=== PATIENT | male | born 2000 | race Caucasian/White ===

== ENCOUNTER 2021-02-01 10:30 | Emergency (ER) | payer SELFPAY ==
[2021-02-01 11:01] VITALS: BP 116/74; PULSE 58; RESP 16; TEMP 36.9; O2SAT 98
--- NOTE | 2021-02-01 11:45 | DI.CT_ITS ---
Exam(s) CT FACIAL W EXAM: CT FACIAL W CLINICAL HISTORY: right jaw pain, swelling. TECHNIQUE: Imaging Protocol: Axial computed tomography images with coronal and sagittal reformatted images were created and reviewed CONTRAST MATERIAL: Intravenous: Omnipaque 350 Contrast volume:100 ml Contrast route:IV - Oral: no COMPARISON: No exams were available for comparison FINDINGS: Facial Bones: No fracture is noted in facial bones. Sinuses and Mastoids: Small mucous retention cyst left maxillary sinus Globes, extraocular muscles, optic nerves and retrobulbar fat: Normal. Upper aerodigestive tract: Normal. Mandible and bilateral temporomandibular joints: Normal. Soft tissues: Asymmetric right parotid gland enlargement and increased enhancement consistent with p arotitis. There is some adjacent edema in the subcutaneous fat. There is no drainable fluid collect ion or abscess. There is no mass. No calcifications are seen. Visualized portions of the brain are unremarkable. The submandibular glands appear normal. IMPRESSION: Right parotitis. No evidence of abscess. RADIATION DOSE DELIVERED: 363.23mGy.cm Total DLP DATA REPOSITORY: All CT scans at this facility are submitted to the National Radiology Data Registry (NRDR) Dose Index Registry (DIR) with the [employer] ([employer]). RADIATION OPTIMIZATION: All CT scans at this facility use at least one of these dose optimization te chniques: automated exposure control; mA and/or kV adjustment per patient size (includes targeted exa ms where dose is matched to clinical indication); or iterative reconstruction.
[2021-02-01 12:50] LABS: Abs Immature Grans 0.19 10^3/uL (0.0-0.06); Absolute Basophil Count 0.09 10^3/uL (0.0-0.2); Absolute Eosinophil Count 0.27 10^3/uL (0.0-0.7); Absolute Lymphocyte Count 2.34 10^3/uL (1.2-3.4); Absolute Monocyte Count 1.04 10^3/uL (0.1-0.8); Absolute Neutrophil Count 9.36 10^3/uL (1.2-6.7); Basophils % 0.7; HCT 42.8 % (40.0-50.0); HGB 14.3 g/dL (13.5-17.5); Immature Grans % 1.4; Lymphocytes % 17.6; MCH 32.9 pg (27.0-33.0); MCHC 33.4 % (32.0-36.0); MCV 98.4 fL (80-95); MPV 12.2 fL (8.0-11.0); Monocytes % 7.8; Neutrophils % 70.5; Nucleated RBC 0 %; Platelet Count 197 10^3/uL (130-400); RBC 4.35 10^6/uL (4.36-5.78); RDW 11.8 % (11.8-14.1); RDW-SD 43.3 fL; WBC 13.28 10^3/uL (4.4-10.8)
[2021-02-01 13:28] LABS: ALT 25 U/L (16-63); AST 20 U/L (15-37); Albumin 4.1 g/dL (3.4-5.0); Alkaline Phosphatase 69 U/L (46-116); Anion Gap 5.2 mmol/L (3-11); BUN 12 mg/dL (7-18); Bilirubin, Total 1.2 mg/dL (0.2-1.0); CO2 31.8 mmol/L (21.0-32.0); CREATININE 0.9 mg/dL (0.70-1.30); Calcium 9.6 mg/dL (8.5-10.1); Chloride 101 mmol/L (98-107); Glucose 88 mg/dL (74-106); Potassium 4.4 mmol/L (3.5-5.1); Sodium 138 mmol/L (136-145); Total Protein 8.2 g/dL (6.4-8.2)
[2021-02-01] MEDS: Omnipaque 350 MG/ML 100 ML BTL IJ (13:39)
[2021-02-01] MEDS: Normal Saline - Diluent 50 ML VIAL IV (13:41)
[2021-02-01] MEDS: Normal Saline Flush 10 ML SYR IVP (13:43)
[2021-02-01] MEDS: Amoxicillin 875/Clav. 125 TAB PO (14:31)
[2021-02-01 14:33] VITALS: BP 124/76; PULSE 69; RESP 18; TEMP 36.4; O2SAT 100
--- NOTE | 2021-02-01 23:20 | ED.GENADUL_ITS ---
Discharge Plan Disposition Patient Disposition: HOME Condition: Stable Discharge Details Clinical Impression: Acute parotitis Primary Care Provider: Cecy Mi ED Provider: Roseline Pérez Home Meds and New Rx's Prescriptions: New amoxicillin-pot clavulanate [Augmentin] 875-125 mg tablet 1 tab PO BID Qty: 19 RF: 0 Discharge Instructions Instructions: Sialoadenitis (ED) Additional Instructions: Please return immediately to the emergency department if you develop any new or worsening symptoms, if your condition does not improve as expected, or if you become otherwise concerned. It is extremely important that you call soon as possible to make an appointment to be seen in follow-up for this visit by your primary care doctor. Stand Alone Forms: Work Release Referrals: Cecy Mi [Primary Care Provider] - Discharge Data Discharge Date/Time-TO BE ENTERED AT DEPARTURE: 02/01/21 14:37 Medical Decision Making Javi Grant is a 20 y/o man without reported h/o major medical problems who presented to the emergency department with acute swelling and pain of the right jaw. On exam Pt is well and non-toxic appearing. Focal edema and TTP over the right angle of the mandible and submandibular area, no overlying skin changes. Normal examination of the oropharynx. Concern for abscess, bony inflammation/infection, parotitis, other. Plan for IV placement, screening labs, CT face. Exam/hx at this time not c/w sepsis, meningitis, impending airway compromise. CT shows parotitis. Labs reviewed, WBC elevated, normal AG. Viral etiology less likely, no prior illness, unilateral. Plan to treat with abx, OTC sialogogues. I had a lengthy discussion with Patient regarding return to emergency department precautions, home care, and importance of outpatient follow-up. Pt verbalizes understanding of the plan and is amenable. Patient discharged to home with clear plan for outpatient follow-up. All questions were answered. Disposition decision was made weighing the risks and benefits of hospitalization versus outpatient treatment, the risk for further decompensation, and the patie nt's wishes. Medical Records Medical records reviewed: Yes I reviewed the patient's medical records. Imaging Data Radiologic Study: Attestation: I personally reviewed and interpreted this imaging study as follows: Radiologist's impression: EXAM: CT FACIAL W CLINICAL HISTORY: right jaw pain, swelling. TECHNIQUE: Imaging Protocol: Axial computed tomography images with coronal and sagittal reformatted images were created and reviewed CONTRAST MATERIAL: Intravenous: Omnipaque 350 Contrast volume:100 ml Contrast route:IV - Oral: no COMPARISON: No exams were available for comparison FINDINGS: Facial Bones: No fracture is noted in facial bones. Sinuses and Mastoids: Small mucous retention cyst left maxillary sinus Globes, extraocular muscles, optic nerves and retrobulbar fat: Normal. Upper aerodigestive tract: Normal. Mandible and bilateral temporomandibular joints: Normal. Soft tissues: Asymmetric right parotid gland enlargement and increased enhancement consistent with parotitis. There is some adjacent edema in the subcutaneous fat. There is no drainable fluid collection or abscess. There is no mass. No calcifications are seen. Visualized portions of the brain are unremarkable. The submandibular glands appear normal. IMPRESSION: Right parotitis. No evidence of abscess. Lab Data Labs: Laboratory Tests Range/Units 02/01/21 02/01/21 12:39 12:39 WBC (4.4-10.8) 10^3/uL 13.28 H RBC (4.36-5.78) 10^6/uL 4.35 L Hgb (13.5-17.5) g/dL 14.3 Hct (40.0-50.0) % 42.8 MCV (80-95) fL 98.4 H MCH (27.0-33.0) pg 32.9 MCHC (32.0-36.0) % 33.4 RDW (11.8-14.1) % 11.8 Plt Count (130-400) 10^3/uL 197 MPV (8.0-11.0) fL 12.2 H Immature Gran % 1.4 Neutrophils % 70.5 Lymphocytes % 17.6 Monocytes % 7.8 Eosinophils % 2.0 Basophils % 0.7 Nucleated RBC % % 0 Absolute Neutrophils (1.2-6.7) 10^3/uL 9.36 H Absolute Lymphocytes (1.2-3.4) 10^3/uL 2.34 Absolute Monocytes (0.1-0.8) 10^3/uL 1.04 H Absolute Eosinophils (0.0-0.7) 10^3/uL 0.27 Absolute Basophils (0.0-0.2) 10^3/uL 0.09 Sodium (136-145) mmol/L 138 Potassium (3.5-5.1) mmol/L 4.4 Chloride (98-107) mmol/L 101 Carbon Dioxide (21.0-32.0) mmol/L 31.8 Anion Gap (3-11) mmol/L 5.2 BUN (7-18) mg/dL 12 Creatinine (0.70-1.30) mg/dL 0.9 Estimated GFR/1.73 m2 (mL/min/1.73m2) >= 60.00 Glucose (74-106) mg/dL 88 Calcium (8.5-10.1) mg/dL 9.6 Total Bilirubin (0.2-1.0) mg/dL 1.2 H AST (15-37) U/L 20 ALT (16-63) U/L 25 Alkaline Phosphatase (46-116) U/L 69 Total Protein (6.4-8.2) g/dL 8.2 Albumin (3.4-5.0) g/dL 4.1 HPI General Mode of arrival: ambulatory . Date/Time Provider Initiated Documentation: 02/01/21 11:26 . Limitations to Documentation: no limitations . Information obtained by: patient, RN notes reviewed and old records reviewed . HPI Narrative: Javi Grant is a 20 y/o man without reported h/o major medical problems presenting to the emergency department with chief complaint right jaw pain. Pt reports that yesterday he noticed pain and swelling in his right jaw and right submandibular area. Pt reports swelling has been unchanged since onset, pain has been increasing. Pt reports pain with palpation of the area and with moving his jaw, particularly while chewing. He denies any other pain including sore throat, ear pain, neck pain. Denies any difficulty swallowing. Has been able to eat and drink as usual. No fever, vomiting, diarrhea, SOB, cough, numbness, weakness, rash. No dental issues. He denies trauma or other inciting event. Never had similar symptoms in the past. Pt is unsure of his vaccination status. No recent illness. Related Data Home Medications Medication Instructions Recorded Confirmed amoxicillin-pot clavulanate 1 tab PO BID #19 tab 02/01/21 [Augmentin] Previous Rx's Medication Instructions Recorded amoxicillin-pot clavulanate 1 tab PO BID #19 tab 02/01/21 [Augmentin] Allergies Allergy/AdvReac Type Severity Reaction Status Date / Time No Known Allergies Allergy Unverified 02/01/21 11:05 General Stated Complaint: FacialProb [place]: 3 Review of Systems Narrative: Constitutional: denies fevers Eyes: denies eye pain ENT: denies ear pain, dental pain, sore throat, reports facial swelling and pain Cardiovascular: denies chest pain Respiratory: denies SOB, cough GI: denies abdominal pain, vomiting, diarrhea : denies flank pain MSK: denies back pain, neck pain, arthralgias, myalgias Skin: denies rash Neuro: denies headaches, numbness, weakness [facility] Social History Smoking/Tobacco Use Status: Never Smoking risk assessment performed?: Yes Alcohol Intake: current Alcohol Intake frequency: a few times a week Drug use: Socially Substance use type: marijuana Do you feel safe at home: Yes Do you feel safe in your relationship?: Yes Exam Narrative Exam Narrative: Constitutional: well and [id number], pleasant, conversing normally HENT: head atraumatic/normocephalic, edema over the angle of right mandible and of the right submandibular area, TTP of the right submandibular area and the angle of the mandible, no TTP of the TMJ, buccal area, normal examination of the oropharynx without edema, exudate, erythema, or lesion, uvula midline, normal voice, mucous membranes moist Eyes: conjunctiva normal, sclera normal, pupils 3mm b/l Neck: no stridor, normal ROM, trachea midline Resp: normal work of breathing, speaking in full sentences Cardio: normal rate, normal rhythm Skin: warm, dry, normal color, no rash Neuro: alert, not altered, grossly non-focal, normal tone Ext: no edema Psych: normal mood, normal affect, normal behavior Course Vital Signs Vital signs: Vital Signs Temperature 36.9 C 02/01/21 11:01 Pulse 58 L 02/01/21 11:01 Respiratory Rate 16 02/01/21 11:01 Blood Pressure 116/74 02/01/21 11:01 Pulse Oximetry 98 02/01/21 11:01 Temperature 36.4 C L 02/01/21 14:33 Temperature Source Tympanic 02/01/21 11:01 Pulse 69 02/01/21 14:33 Respiratory Rate 18 02/01/21 14:33 Respiratory Effort Non-Labored 02/01/21 11:06 Blood Pressure 124/76 02/01/21 14:33 Blood Pressure Position Supine 02/01/21 11:01 Pulse Oximetry 100 02/01/21 14:33 Oxygen Delivery Method Room Air 02/01/21 11:01 Oxygen Flow Rate 0 02/01/21 11:01 Pain Level 7 02/01/21 11:01 Lab/Test Results Lab/Test Results: Laboratory Tests Range/Units 02/01/21 02/01/21 12:39 12:39 WBC (4.4-10.8) 10^3/uL 13.28 H RBC (4.36-5.78) 10^6/uL 4.35 L Hgb (13.5-17.5) g/dL 14.3 Hct (40.0-50.0) % 42.8 MCV (80-95) fL 98.4 H MCH (27.0-33.0) pg 32.9 MCHC (32.0-36.0) % 33.4 RDW (11.8-14.1) % 11.8 Plt Count (130-400) 10^3/uL 197 MPV (8.0-11.0) fL 12.2 H Immature Gran % 1.4 Neutrophils % 70.5 Lymphocytes % 17.6 Monocytes % 7.8 Eosinophils % 2.0 Basophils % 0.7 Nucleated RBC % % 0 Absolute Neutrophils (1.2-6.7) 10^3/uL 9.36 H Absolute Lymphocytes (1.2-3.4) 10^3/uL 2.34 Absolute Monocytes (0.1-0.8) 10^3/uL 1.04 H Absolute Eosinophils (0.0-0.7) 10^3/uL 0.27 Absolute Basophils (0.0-0.2) 10^3/uL 0.09 Sodium (136-145) mmol/L 138 Potassium (3.5-5.1) mmol/L 4.4 Chloride (98-107) mmol/L 101 Carbon Dioxide (21.0-32.0) mmol/L 31.8 Anion Gap (3-11) mmol/L 5.2 BUN (7-18) mg/dL 12 Creatinine (0.70-1.30) mg/dL 0.9 Estimated GFR/1.73 m2 (mL/min/1.73m2) >= 60.00 Glucose (74-106) mg/dL 88 Calcium (8.5-10.1) mg/dL 9.6 Total Bilirubin (0.2-1.0) mg/dL 1.2 H AST (15-37) U/L 20 ALT (16-63) U/L 25 Alkaline Phosphatase (46-116) U/L 69 Total Protein (6.4-8.2) g/dL 8.2 Albumin (3.4-5.0) g/dL 4.1
== END 2021-02-01 14:37 | disposition home or self-care (01) ==
PROVIDERS: Emergency Provider Student in an Organized Health Care Education/Training Program; PCP Nurse Practitioner Family
DX: K11.21 Acute sialoadenitis (principal)
CPT/HCPCS: 36415; 80053; 99285; 70487; 85025; 99284; J3490

== ENCOUNTER 2022-01-31 14:35 | Emergency (ER) | payer SELFPAY ==
[2022-01-31 14:49] VITALS: BP 122/74; PULSE 76; RESP 18; TEMP 37; O2SAT 100
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
--- NOTE | 2022-01-31 16:48 | CMPROGNOTE_ITS ---
- If Service Date Differs Date of service: 01/31/22 Time of Service: 16:48 Care Management Progress Note SBIRT screen: positive for nicotine and alcohol (AUDIT 14). Pt reports he has stopped using cannabis over a month ago due to concerns about sports performance and is considering stopping nicotine as well. Pt notes he already has contact information for smoking cessation and is pursuing it. Pt reports drinking approx 6 drinks 2-3 x per week and states he is not interested in stopping d rinking at this time, but will consider low risk guidelines as a harm reduction strategy.
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
[2022-01-31 18:37] VITALS: BP 126/82; PULSE 68; RESP 18; TEMP 36.7; O2SAT 98
== END 2022-01-31 18:55 | disposition home or self-care (01) ==
PROVIDERS: Emergency Provider Registered Nurse Emergency; PCP Nurse Practitioner Family
DX: S16.1XXA Strain of muscle, fascia and tendon at neck level, initial encounter (principal); R07.89 Other chest pain; V89.2XXA Person injured in unspecified motor-vehicle accident, traffic, initial encounter
CPT/HCPCS: 99284; 71046; 72040

== ENCOUNTER 2022-09-28 01:32 | Outpatient (CLI) | payer MEDICAID, SELFPAY ==
--- NOTE | 2022-09-28 | DI.RAD_ITS ---
Exam(s) XR TOE LT GREAT EXAM: XR TOE LT GREAT CLINICAL HISTORY: LT GREAT TOE PAIN, M79.675. TECHNIQUE: 2D digital imaging was performed. Three views. COMPARISON: No exams were available for comparison FINDINGS: BONES: No acute fracture is present. No bony destructive lesion is seen. JOINTS: No dislocation present. No significant degenerative changes. SOFT TISSUE: Normal. IMPRESSION: No acute abnormality. DATA REPOSITORY: RADIATION DOSE DELIVERED:
== END 2022-09-28 01:52 ==
LOC: DI 01:32
PROVIDERS: PCP Nurse Practitioner Family; Visit Provider Nurse Practitioner Family
DX: M79.675 Pain in left toe(s) (principal)
CPT/HCPCS: 73660

== ENCOUNTER 2023-02-24 09:01 | Outpatient (CLI) | payer MEDICAID, SELFPAY ==
--- NOTE | 2023-02-24 08:40 | DI.RAD_ITS ---
Exam(s) XR WRIST RT COMPLETE XR WRIST LT COMPLETE EXAM: XR WRIST LT COMPLETE CLINICAL HISTORY: LEFT WRIST PAIN. TECHNIQUE: 2D digital imaging was performed. Three views. COMPARISON: CR XR WRIST RT COMPLETE from 02/24/2023 FINDINGS: BONES: No acute fracture is present. No bony destructive lesion is seen. JOINTS: The carpal bones are normally aligned. SOFT TISSUE: Swelling around wrist. No foreign body. IMPRESSION: Bilateral soft tissue swelling. No bony abnormality. DATA REPOSITORY: RADIATION DOSE DELIVERED:
== END 2023-02-24 09:02 | disposition home or self-care (01) ==
LOC: DIORS 09:01
PROVIDERS: PCP Nurse Practitioner Family; Referring Provider Nurse Practitioner Family; Visit Provider Physician Assistant
DX: R22.31 Localized swelling, mass and lump, right upper limb (principal); R22.32 Localized swelling, mass and lump, left upper limb; M25.531 Pain in right wrist; M25.532 Pain in left wrist
CPT/HCPCS: 73110

== ENCOUNTER → 2023-03-16 02:54 | Outpatient (CLI) | payer MEDICAID, SELFPAY ==
--- NOTE | 2023-03-16 08:30 | DI.MRI_ITS ---
Exam(s) MR UPPER JOINT LT WO EXAM: MR UPPER JOINT LT WO CLINICAL HISTORY: PAIN,extensor carpi ulnaris tendinitis, m77.8. TECHNIQUE: Multiplanar multisequence MRI was performed. COMPARISON: Comparison is made with prior examinations. FINDINGS: BONES: There is no fracture or contusion pattern. There is mild marrow edema seen in the medial aspec t of the distal radius. There is a benign-appearing cyst seen in the capitate. JOINTS: The radiocarpal joint is unremarkable. The carpal joints are unremarkable. There is a small amount of fluid in the distal radial ulnar joint. TENDONS: Flexors: Unremarkable. Extensors: There is thickening of the extensor carpi ulnaris tendon and increased signal on the T2 we ighted images of at the level of the distal ulna. There is a question of an intratendinous split of the extensor carpi ulnaris tendon. (Series 4001, image 20). There is fluid seen within the tendon s valeri. There is edema seen in the surrounding soft tissues. The remaining extensor tendons are unre markable. MUSCLES: Unremarkable. MEDIAN NERVE: Unremarkable on this noncontrast examination. ULNAR NERVE: Unremarkable on this noncontrast examination. SOFT TISSUES: There is edema seen in the soft tissues around the tendon sheath. There is a 0.8 x 0.2 cm fluid collection adjacent to the tendon sheath. There is also a 0.6 x 0.5 cm fluid collection ad jacent to the lateral aspect of the radiocarpal joint anteriorly which may represent a small ganglion cyst. LIGAMENTS: Unremarkable. TRIANGULAR FIBROCARTILAGE: Unremarkable. OTHER: IMPRESSION: 1. There is enlargement and increased signal of the extensor carpi ulnaris tendon consistent with ten dinitis. There does appear to be an intra tendinous split of the extensor carpi ulnaris tendon as de scribed above. There is fluid seen within the tendon sheath. 2. Mild edema in the soft tissues surrounding the extensor carpi ulnaris tendon. DATA REPOSITORY:
== END ==
PROVIDERS: PCP Nurse Practitioner Family; Visit Provider Student in an Organized Health Care Education/Training Program
DX: M67.832 Other specified disorders of synovium, left wrist (principal); R22.32 Localized swelling, mass and lump, left upper limb
CPT/HCPCS: 73221

== ENCOUNTER → 2023-11-06 02:49 | Outpatient (CLI) | payer MEDICAID, SELFPAY ==
--- NOTE | 2023-11-06 | DI.MRI_ITS ---
Exam(s) MR UPPER JOINT RT WO EXAM: MR UPPER JOINT RT WO CLINICAL HISTORY: RT WRIST PAIN, M25.531, EVAL FOR [facility] TENDONITIS VS OTHER ULNAR PATHOLOGY. TECHNIQUE: Multiplanar multisequence MRI was performed. COMPARISON: X-ray of the right wrist from 02/24/2023. FINDINGS: BONES: There is no fracture or contusion pattern. There is mild marrow edema seen in the distal ulna. Small cysts are seen in the capitate. JOINTS: The radiocarpal joint is unremarkable. The carpal joints are unremarkable. TENDONS: Flexors: Unremarkable. Extensors: The extensor carpi ulnaris tendon is thickened with mild increased signal particularly jus t distal to the ulnar styloid process. There is mild hyperintense signal seen on the T2 weighted mio ges surrounding the tendon at this level. The tendon does appear to be intact. MUSCLES: Unremarkable. MEDIAN NERVE: Unremarkable on this noncontrast examination. ULNAR NERVE: Unremarkable on this noncontrast examination. SOFT TISSUES: Unremarkable. LIGAMENTS: Unremarkable. TRIANGULAR FIBROCARTILAGE: Unremarkable. OTHER: IMPRESSION: 1. Extensor carpi ulnaris tendinitis. 2. Mild marrow edema seen in the distal ulna without evidence of a fracture. DATA REPOSITORY:
== END ==
PROVIDERS: PCP Nurse Practitioner Family; Visit Provider Orthopaedic Surgery
DX: M25.531 Pain in right wrist (principal)
CPT/HCPCS: 73221

== ENCOUNTER 2023-12-27 22:28 | Outpatient (REF) | payer MEDICAID, SELFPAY ==
--- OUTSIDE RECORDS SUMMARY | 2023-12-27 22:31 | XMS_ITS ---
Author Name Unknown Address [address] [place], [place] [id number] Phone Organization Unknown Address [address] [place] [phone] Phone Care Team Providers Care Property Disposal Manager Name Role Phone AILYN Driscoll Attending Unavailable MARTELL House Primary Unavailable Social History Type Status Start Date End Date Code Code Syst em Sex Male Hospital Discharge Instructions Should you have any questions prior to discharge, please contact a member of your healthcare team. If you have left the hospital and have any questions, please contact your primary care physician. Reason For Referral No Data Found Plan of Treatment No Data Found Encounters Encounter Diagnosis Start Date Code Code Sys tem 11/13/2023 [id number] SNOMED-CT Personal Care Team Section Performer Name Performer Role Active Date Inactive Da janette
--- OUTSIDE RECORDS SUMMARY | 2023-12-27 22:31 | XMS_ITS ---
Author Name Unknown Address [address] [place], [place] [phone] Phone Organization Unknown Address [address] [place] [phone] Phone Care Team Providers Care Manpower Development Advisor Name Role Phone AILYN Driscoll Attending Unavailable [...] Diagnosis Start Date Code Code Sys tem 09/20/2023 [id number] SNOMED-CT Personal Care Team Section Performer Name Performer Role Active Date Inactive Da janette
--- OUTSIDE RECORDS SUMMARY | 2023-12-27 22:31 | XMS_ITS ---
Author Name Unknown Address [address] [place], [place] [phone] Phone Organization Unknown Address [address] [place] [phone] Phone Care Team Providers Care Jewel Grinder Name Role Phone ROOMET DANIEL Attending Unavailable MARTELL House Primary Unavailable Social History Type Status Start Date End Date Code Code Syst em Sex Male Hospital Discharge Instructions Should you have any questions prior to discharge, please contact a member of your healthcare team. If you have left the hospital and have any questions, please contact your primary care physician. Reason For Referral No Data Found Procedures Procedure Name Date Status Code Code Syste m Nerve Conduction Studies 3-4 Studies 10/31/2023 completed 96453 CPT Needle EMG Ea Extremty w/Par aspinl Area Complete 10/31/2023 completed 19420 CPT Plan of Treatment No Data Found Encounters Encounter Diagnosis Start Date Code Code Sys tem Pain in right wrist 10/31/2023 SNOMED-C T Personal Care Team Section Performer Name Performer Role Active Date Inactive Da te
== END 2023-12-27 22:29 | disposition home or self-care (01) ==
LOC: LBN 22:28
PROVIDERS: PCP Nurse Practitioner Family; Visit Provider Physician Assistant Medical
DX: J02.9 Acute pharyngitis, unspecified (principal)
CPT/HCPCS: 87077; 87070

== ENCOUNTER 2024-03-07 15:12 | Outpatient (REF) | payer MEDICAID, SELFPAY ==
[2024-03-11 12:42] LABS: GC Result Negative (Negative)
[2024-03-11 13:19] LABS: Chlamydia Result Positive (Negative)
== END 2024-03-07 15:13 | disposition home or self-care (01) ==
LOC: LBN 15:12
PROVIDERS: Visit Provider Physician Assistant
DX: Z11.3 Encounter for screening for infections with a predominantly sexual mode of transmission (principal)
CPT/HCPCS: 87491; 87591

== ENCOUNTER 2024-05-10 00:27 | Outpatient (CLI) | payer MEDICAID, SELFPAY ==
--- OUTSIDE RECORDS SUMMARY | 2024-05-10 00:28 | XMS_ITS | Encounter Summary ---
Author Organization [facility] Address [address] [place] [address] Care Team Providers Care Convertible Sofa Bedspring Tester Name Role Phone Unavailable Primary Care Provider Unavailabl e Encounter Details Date Type Department Care Team (Late st Contact Info) Description 03/08/2024 Lab Requisition [facility] Pathology & Laboratory Medicine - [facility] [address], [place] [id number] Outr Resulting Lab, Provider Social History Tobacco Use Types Packs/Day Years Used Date Smoking Tobacco: Never Assessed Sex and Gender Information Value Date Recorded Sex Assigned at Not on file Legal Sex Male 0:14 EDT Gender Identity Not on file Sexual Orientation Not on file documented as of this encounter Plan of Treatment Not on file documented as of this encounter Procedures Procedure Name Priority Date/Time Associated Diagnosis Comments CHLAMYDIA/N. GONORRHOEAE AMPLIFIED NUCLEIC ACID Routine 03/07/2024 15:00 EDT documented in this encounter Results * (ABNORMAL) CHLAMYDIA/N. GONORRHOEAE AMPLIFIED NUCLEIC ACID (03/07/2024 15:00 EDT) Neisseria gonorrhoeae Result Negative Negative 03/11/2024 12:36 EDT [facility] Chlamydia trachomatis Result Positive(A) Negative 03/11/2024 12:36 EDT [facility] Urine URINE / Unknown 03/07/2024 1 5:00 EDT 03/08/2024 17:33 EDT us Provider Outr Resulting Lab MICROBIOLOGY - GENER AL ORDERABLES Final Result [facility] [address] [place] [address] documented in this encounter Visit Diagnoses Not on filedocumented in this encounter
--- OUTSIDE RECORDS SUMMARY | 2024-05-10 00:28 | XMS_ITS | Clinical Summary ---
Author Organization [facility] Address [address] [place] [address] Care Team Providers Care Drama Critic Name Role Phone Unavailable Primary Care Provider Unavailabl e Encounters Date Type Department Care Team Description 03/08/2024 Lab Requisition [facility] Pathology & Laboratory Medicine - [facility] [address] [place] [address] Outr Resulting Lab, Provider from Last 3 Months Social History Tobacco Use Types Packs/Day Years Used Date Smoking Tobacco: Never Assessed Sex and Gender Information Value Date Recorded Sex Assigned at Not on file Legal Sex Male 0:14 EDT Gender Identity Not on file Sexual Orientation Not on file Plan of Treatment Health Maintenance Due Date Last Done Comments Hepatitis C Screen 2000 Hepatitis B Vaccine (1 of 3 - 19+ 3-dose series) 10/21 COVID-19 Vaccine ( season) 2024 Procedures Procedure Name Priority Date/Time Associated Diagnosis Comments CHLAMYDIA/N. GONORRHOEAE AMPLIFIED NUCLEIC ACID Routine 03/07/2024 15:00 EDT from Last 3 Months Results * (ABNORMAL) CHLAMYDIA/N. GONORRHOEAE AMPLIFIED NUCLEIC ACID (03/07/2024 15:00 EDT) Neisseria gonorrhoeae Result Negative Negative 03/11/2024 12:36 EDT [facility] Chlamydia trachomatis Result Positive(A) Negative 03/11/2024 12:36 EDT [facility] Urine URINE / Unknown 03/07/2024 1 5:00 EDT 03/08/2024 17:33 EDT us Provider Outr Resulting Lab MICROBIOLOGY - GENER AL ORDERABLES Final Result [facility] [address] [place] [address] from Last 3 Months
--- OUTSIDE RECORDS SUMMARY | 2024-05-10 00:28 | XMS_ITS ---
Author Organization Unknown Address [address] [place], [place] [phone] Phone Care Team Providers Care Blocker And Cutter Contact Lens Name Role Phone AILYN Driscoll Attending Unavailable [...] Start Date Code Code Sys tem 09/20/2023 [id number] SNOMED-CT Personal Care Team Section Performer Name Performer Role Active Date Inactive Da te
--- OUTSIDE RECORDS SUMMARY | 2024-05-10 00:28 | XMS_ITS | Referral Summary ---
Author Organization [facility] Address [address] [place] [address] Care Team Providers Care Pattern Gater Name Role Phone Unavailable Primary Care Provider Unavailabl e Encounters Date Type Department Care Team Description 03/08/2024 Lab Requisition [facility] Pathology & Laboratory Medicine - [facility] [address] [place] [address] Outr Resulting Lab, Provider from Last 3 Months Social History Tobacco Use Types Packs/Day Years Used Date Smoking Tobacco: Never Assessed Sex and Gender Information Value Date Recorded Sex Assigned at Not on file Legal Sex Male 0:14 EDT Gender Identity Not on file Sexual Orientation Not on file Plan of Treatment Not on file Procedures Procedure Name Priority Date/Time Associated Diagnosis Comments CHLAMYDIA/N. GONORRHOEAE AMPLIFIED NUCLEIC ACID Routine 03/07/2024 15:00 EDT from Last 3 Months Results * (ABNORMAL) CHLAMYDIA/N. GONORRHOEAE AMPLIFIED NUCLEIC ACID (03/07/2024 15:00 EDT) Neisseria gonorrhoeae Result Negative Negative 03/11/2024 12:36 EDT [facility] Chlamydia trachomatis Result Positive(A) Negative 03/11/2024 12:36 EDT [facility] Urine URINE / Unknown 03/07/2024 1 5:00 EDT 03/08/2024 17:33 EDT us Provider Outr Resulting Lab MICROBIOLOGY - GENER AL ORDERABLES Final Result [facility] [address] [place] [address] from Last 3 Months
--- OUTSIDE RECORDS SUMMARY | 2024-05-10 00:29 | XMS_ITS | Clinical Summary ---
Author Organization [facility] [place] [address] Care Team Providers Care Hand Turner Name Role Phone Unavailable Primary Care Provider Unavailabl e Social History Tobacco Use Types Packs/Day Years Used Date Smoking Tobacco: Never Assessed Sex and Gender Information Value Date Recorded Sex Assigned at Not on file Gender Identity Not on file Sexual Orientation Not on file Plan of Treatment Health Maintenance Due Date Last Done Comments HPV vaccine (1 - Male 3-dose series) 10/22/2015 HIV screen 2018 Hepatitis C Screening 2018 Hepatitis B vaccine (0-59 yrs) (1) 10/22/2019 Tetanus/Diphtheria/Pertussis Vaccines (1 - Tdap) 10/21 Covid-19 Vaccine (1 - 2023- season) 2024 Influenza (Flu) vaccine (1 o f 1 - Influenza standard series) 02/25/2024
--- OUTSIDE RECORDS SUMMARY | 2024-05-10 00:29 | XMS_ITS ---
Author Organization Unknown Address [address] [place], [place] [phone] Phone Care Team Providers Care Filter Press Supervisor Name Role Phone AILYN Driscoll Attending Unavailable [...] Start Date Code Code Sys tem 11/13/2023 [id number] SNOMED-CT Personal Care Team Section Performer Name Performer Role Active Date Inactive Da te
--- OUTSIDE RECORDS SUMMARY | 2024-05-10 00:29 | XMS_ITS ---
Author Organization Unknown Address [address] [place], [place] [phone] Phone Care Team Providers Care Project Development Leader Name Role Phone ROOMET DANIEL Attending Unavailable [...] Nerve Conduction Studies 3-4 Studies 10/31/2023 completed 60572 CPT Needle EMG Ea Extremty w/Par aspinl Area Complete 10/31/2023 completed 75835 CPT Plan of Treatment No Data Found Encounters Encounter Diagnosis Start Date Code Code Sys tem Pain in right wrist 10/31/2023 SNOMED-C T Personal Care Team Section Performer Name Performer Role Active Date Inactive Da te
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
--- NOTE | 2024-05-10 14:54 | DI.RAD_ITS ---
Exam(s) XR CERVICAL SPINE COMP 4-5V EXAM: XR CERVICAL SPINE COMP 4-5V CLINICAL HISTORY: RADICULOPATHY CERVICAL REGION M54.12. TECHNIQUE: 2D digital imaging was performed. Five views were performed. COMPARISON: CR,XR XR CERVICAL SP VALDES TRAUMA 2-3V from 01/31/2022 FINDINGS: BONES: No fracture or destructive lesion. Vertebral bodies are unremarkable. Small bilateral C7 rib s. DISKS: Intervertebral disc spaces are maintained. ALIGNMENT: Cervical spinal alignment is within normal limits. The odontoid and atlantoaxial articulat ions are normal. SOFT TISSUE: Normal. The lung apices are clear. IMPRESSION: No acute abnormality. Small bilateral C7 ribs. DATA REPOSITORY: RADIATION DOSE DELIVERED:
== END 2024-05-10 00:47 ==
LOC: DI 00:27
PROVIDERS: PCP Nurse Practitioner Family; Visit Provider Physician Assistant Medical
DX: M54.12 Radiculopathy, cervical region (principal)
CPT/HCPCS: 72050

== ENCOUNTER 2024-07-18 02:49 | Outpatient (CLI) | payer MEDICAID, SELFPAY ==
--- NOTE | 2024-07-18 | DI.MRI_ITS ---
Exam(s) MR THORACIC SPINE WO EXAM: MR THORACIC SPINE WO CLINICAL HISTORY: M54.9 Dorsalgia. TECHNIQUE: Multiplanar multisequence MRI of the Thoracic spine was performed. COMPARISON: CR,XR XR CHEST 2V PA LATERAL from 01/31/2022 FINDINGS: Bones: The vertebral body heights are well maintained. Alignment is satisfactory. The marrow signal characteristics are unremarkable. Cord: The thoracic cord is normal size and signal intensity. No intrinsic cord lesion is present. Soft tissues: Normal. T1-2: No disc herniation or bulge is identified. T2-3: No disc herniation or bulge is identified. T3-4: No disc herniation or bulge is identified. T4-5: No disc herniation or bulge is identified. T5-6: No disc herniation or bulge is identified. T6-7: No disc herniation or bulge is identified. T7-8: No disc herniation or bulge is identified. T8-9: No disc herniation or bulge is identified. T9-10: No disc herniation or bulge is identified. T10-11:No disc herniation or bulge is identified. T11-12: No disc herniation or bulge is identified. T12-L1: No disc herniations or bulges are present. IMPRESSION: Normal MRI examination of the thoracic spine. DATA REPOSITORY:
--- NOTE | 2024-07-18 | DI.MRI_ITS ---
Exam(s) MR CERVICAL SPINE WO EXAM: MR CERVICAL SPINE WO CLINICAL HISTORY: M54.12 Radiculopathy, cervical region TECHNIQUE: Multiplanar multisequence MRI of the cervical spine was performed without intravenous con trast. COMPARISON: CR XR CERVICAL SPINE COMP 4-5V from 05/10/2024 FINDINGS: Exam is mildly limited by motion. BONES: Vertebral body heights are maintained. Alignment is normal. Bone marrow signal intensity is wi thin normal limits. CERVICAL CORD: Craniovertebral junction is unremarkable. The cervical cord is normal size and signal intensity. SOFT TISSUES: Unremarkable. C2-3: No disc herniation or bulge is identified. No evidence of neural foraminal narrowing. No signi ficant central canal stenosis. C3-4: The disc height is maintained. There is a tiny central disc protrusion. No evidence of neural foraminal narrowing. No significant central canal stenosis. C4-5: The disc height is maintained. Minimal central disc protrusion. No evidence of neural foramin al narrowing. No significant central canal stenosis. C5-6: No disc herniation or bulge is identified. No evidence of neural foraminal narrowing. No signif icant central canal stenosis. C6-7: No disc herniation or bulge is identified. No evidence of neural foraminal narrowing. No signif icant central canal stenosis. C7-T1: No disc herniation or bulge is identified. No evidence of neural foraminal narrowing. No signi ficant central canal stenosis. IMPRESSION: Tiny central disc protrusions at C3-4 and C4-5 which not contact the cord significantly deform the th ecal sac. No neural foraminal narrowing or central canal stenosis. DATA REPOSITORY:
--- NOTE | 2024-07-18 | DI.MRI_ITS ---
Exam(s) MR LUMBAR SPINE WO EXAM: MR LUMBAR SPINE WO CLINICAL HISTORY: M54.50 Low back pain. TECHNIQUE: Multiplanar multisequence MRI of the Lumbar spine was performed. COMPARISON: No exams were available for comparison FINDINGS: Conus medullaris is at normal level. There is no evidence of conus mass nor subjacent clumping of in trathecal nerve roots to suggest arachnoiditis. The distal thecal sac appears unremarkable.There is no evidence of Tarlov intrasacral cysts nor other significant findings within the sacral canal Bones:There are no fractures nor ominous osseous lesions in the lumbar vertebral bodies and visualize d sacrum. With respect to the individual levels... T12-L1: Unremarkable L1-2: Normal disc height and signal. No disc herniation nor central canal stenosis.No foraminal steno sis L2-3: Normal disc height. No disc herniation nor central canal stenosis.No foraminal stenosis.No face t arthropathy. L3-4: Normal disc height. No disc herniation or central canal stenosis.No foraminal stenosis.No face t arthropathy. L4-5: Normal disc height and signal. No disc herniation or central canal stenosis. No facet arthrop athy. No foraminal stenosis. L5-S1: Normal disc height. Slightly decreased disc hydration signal. Posteriorly there is a central subligamentous disc protrusion which indents the anterior aspect of the thecal sac. This disc protr usion extends posteriorly 5 mm and is approximately 9 mm wide. Central canal dimensions are lower no rmal. Disc protrusion does not extend into the exiting neural foramina. There is no significant for aminal stenosis at this level. Facet joints appear unremarkable. Soft tissues: paraspinal soft tissues appear unremarkable. IMPRESSION: 1. There is a central subligamentous disc protrusion at L5-S1 level as described above. Central bethany l dimensions are lower normal at this level and there is no foraminal stenosis. No facet arthropathy . 2. All the other levels appear unremarkable. No other disc herniations. No canal stenosis at these other levels and no foraminal stenosis. DATA REPOSITORY:
== END 2024-07-18 03:09 ==
LOC: DI 02:49
PROVIDERS: PCP Nurse Practitioner Family; Visit Provider Nurse Practitioner Family
DX: M51.360 Other intervertebral disc degeneration, lumbar region with discogenic back pain only (principal); M50.221 Other cervical disc displacement at C4-C5 level
CPT/HCPCS: 72141; 72146; 72148

== ENCOUNTER 2024-07-29 11:37 | Emergency (ER) | payer MEDICAID, SELFPAY ==
[2024-07-29 11:38] VITALS: BP 119/72; PULSE 90; RESP 16; O2SAT 99
--- NOTE | 2024-07-29 11:41 | W.ED.GENAD ---
Discharge Plan Disposition Patient Disposition: Home Discharge Details Clinical Impression: Right ankle sprain Primary Care Provider: Cecy Mi ED Provider: Andrae Wiseman Home Meds and New Rx's Prescriptions: Continued doxycycline hyclate 100 mg capsule 100 mg PO BID Qty: 20 0RF cyclobenzaprine 10 mg tablet 10 mg PO DAILY PRN Patient Comments: TAKE ONE TABLET BY MOUTH EVERY DAY NEEDED Discharge Instructions Instructions: Ankle Sprain ED Additional Instructions: You were seen in the emergency department for your ankle pain. Your x-ray showed no sign of any fractures. You most likely have a sprain. As we discussed if your pain does not steadily improve over the next several days or worsens please return to the emergency department or follow-up with a primary care provider as it is certainly possible that the x-ray could have messed a subtle fracture. Please wear this lace up ankle brace as needed. You may put weight on your right lower extremity but also uses crutches as needed. If you develop worsening pain or of any other concerns please return to the emergency department. For your pain please take medications as follows: 1. Take acetaminophen (Tylenol), 1,000 mg (two 500 mg tabs) every 6 hours [2. Take ibuprofen (Advil), 400 mg every 6 hours.] Discharge Data Discharge Date/Time-TO BE ENTERED AT DEPARTURE: 07/29/24 13:54 Discharge Physician: Andrae Wiseman [facility] General Date/Time Provider Initiated Documentation: 07/29/24 11:41. HPI Narrative: MDM Primary survey intact. Reassuring shock index. On secondary survey patient has right lateral foot pain swelling concerning for fracture versus sprain for which he will undergo plain films. No proximal tibial tenderness to suggest Maisonneuve injury. No midfoot instability to suggest Lisfranc mechanism. No right lateral foot tenderness to suggest Sharma fracture. No pain out of proportion to suggest necrotizing soft tissue infection. Right foot warm well-perfused so not concern for critical limb ischemia so I do not feel the patient requires a CT angiogram of his lower extremities. No significant erythema to suggest cellulitis. No fluctuance to suggest abscess. No joint effusion nor fevers to suggest septic joint. Will provide patient with a lace up ankle bruise, crutches, make him weightbearing as tolerated if his x-ray shows no sign of any fractures. Will treat with acetaminophen and ibuprofen. 4 P.m. Plain films negative for any acute osseous abnormalities. I discussed this patient that he should symptoms should steadily improve. We discussed that he should return to the ED if you develop worsening symptoms as this could represent a subtle fracture not detected on initial x-ray. He understood his return indications. He was made weightbearing as tolerated with crutches for his right lower extremity. HPI This is a 23-year-old previously healthy male up-to-date with immunizations are to the emergency department via private vehicle in the setting of right ankle pain. Patient reports that he was playing soccer yesterday evening. He reports that he went up for a contested ball and inadvertently inverted his right ankle as he fell. He did not lose consciousness. He did not hit his head. He has been wearing a walking boot from a prior orthopedic injury. He had no numbness or tingling in his right foot. He is able to move his right toes. Exam General: Well-appearing in no acute distress speaking in complete sentences. Head: Normocephalic, atraumatic. Eye: Extraocular eye movements intact. No conjunctival injection. No scleral icterus. Ear, nose, mouth, throat: Grossly normal inspection. Normal voice, handling secretions normally. Neck: Trachea midline. Cardiovascular: Well-perfused distal extremities. Respiratory: Nonlabored respiration. Gastrointestinal: Nondistended abdomen. Musculoskeletal: Moderate swelling right lateral malleolus. No proximal tibial tenderness. Moderate swelling right proximal foot. No midfoot instability. No right lateral foot tenderness. No calcaneal tenderness nor talar tenderness. 4-5 strength dorsi and plantarflexion right foot limited secondarily by pain. Cap refill less than 2 seconds right toes. Skin: Normal for age and race, grossly normal temperature and turgor. No acute rash. Neurologic: Alert and appropriate, no apparent acute deficits. GCS 15. Related Data Home Medications ?Medication ?Instructions ?Recorded ?Confirmed doxycycline hyclate 100 mg capsule 100 mg PO BID #20 caps 03/07/24 07/29/24 cyclobenzaprine 10 mg tablet 10 mg PO DAILY PRN 07/29/24 07/29/24 Previous Rx's ?Medication ?Instructions ?Recorded doxycycline hyclate 100 mg capsule 100 mg PO BID #20 caps 03/07/24 Allergies Allergy/AdvReac Type Severity Reaction Status Date / Time pollen extracts AdvReac Other (See Verified 07/29/24 11:43 Comment) General [place]: 3 Medical Decision Making Quality:SDOH Health Related Social Needs: No Data to Display PFSH All Active Problems (Updated 07/29/24 @ 13:25 by Andrae Wiseman MD) Right ankle sprain (Acute) Extensor carpi ulnaris tendinitis (Acute) bilateral Hyperpigmentation (Acute) Acute parotitis (Acute) Social History Smoking/Tobacco Use Status: Never Smoking risk assessment performed?: Yes Alcohol Intake: current Alcohol Intake frequency: a few times a week Drug use: Socially Substance use type: marijuana Current gender identity: male Do you feel safe at home: Yes Do you feel safe in your relationship?: Yes
--- NOTE | 2024-07-29 11:45 | DI.RAD_ITS ---
Exam(s) XR FOOT RT COMPLETE EXAM: XR FOOT RT COMPLETE CLINICAL HISTORY: Right proximal foot pain status post inversion. TECHNIQUE: 2D digital imaging was performed. Three views. COMPARISON: CR XR TOE LT GREAT from 09/28/2022 FINDINGS: BONES: No acute fracture is present. No bony destructive lesion is seen. JOINTS: No dislocation present. SOFT TISSUE: Normal. IMPRESSION: Unremarkable radiographs of the right foot. DATA REPOSITORY: RADIATION DOSE DELIVERED:
--- NOTE | 2024-07-29 11:45 | DI.RAD_ITS ---
Exam(s) XR ANKLE RT COMPLETE EXAM: XR ANKLE RT COMPLETE CLINICAL HISTORY: Right lateral malleolus pain status post inversion. TECHNIQUE: 2D digital imaging was performed. Three views. COMPARISON: No exams were available for comparison FINDINGS: BONES: No acute fracture is present. No bony destructive lesion is seen. JOINTS: The ankle mortise is normally aligned. SOFT TISSUE: Normal. IMPRESSION: Unremarkable radiographs of the right ankle. DATA REPOSITORY: RADIATION DOSE DELIVERED:
[2024-07-29] MEDS: Ibuprofen 600 MG TAB PO (12:02)
[2024-07-29] MEDS: Acetaminophen 500 MG TAB 1000 MG PO (12:02)
[2024-07-29 13:52] VITALS: BP 109/69; PULSE 88; RESP 16; TEMP 36.6; O2SAT 98
== END 2024-07-29 13:54 | disposition home or self-care (01) ==
PROVIDERS: Emergency Provider Emergency Medicine; PCP Nurse Practitioner Family
DX: S93.401A Sprain of unspecified ligament of right ankle, initial encounter (principal); X58.XXXA Exposure to other specified factors, initial encounter; Y93.66 Activity, soccer
CPT/HCPCS: 29515; 99284; 73610; 73630; 99283